=== PATIENT | female | born 1990 | race Caucasian/White ===

== ENCOUNTER → 2022-06-14 20:18 | Observation (INO) ==
[~2022-06-14 20:18] MED LIST: Morphine Sulfate 2 MG/ML SYRINGE IVP ONE; Morphine Sulfate 2 MG/ML SYRINGE SQ PRN
== END | disposition home or self-care (01) ==
LOC: 1NENULAB
PROVIDERS: ADMIT Registered Nurse; ATTEND Registered Nurse

== ENCOUNTER → 2022-06-22 23:02 | Observation (INO) ==
[2022-06-22 20:30] LABS: Bilirubin,Urine Negative (Negative); Blood,Urine Trace (Negative); Clarity,Urine Clear (Clear); Color,Urine Light-Yellow (Yellow); Glucose,Urine (UA) Normal (Normal); Ketones,Urine Trace mg/dL (Negative); Leukocyte Esterase,Urine Negative (Negative); Nitrite,Urine Negative (Negative); PH,Urine 6.5 pH Units (5.0-8.0); Protein,Urine 30 mg/dL (Neg-Trace); Urobilinogen,Urine Normal (Normal)
[2022-06-22 20:31] LABS: Mucus,Urine Few per lpf (None-Few); Squamous Epithelial Cell,Urine Moderate per hpf (None-Few); WBC,Urine 0-3 per hpf (0-3)
[2022-06-22 22:45] LABS: Candida DNA Not Detected (Not Detect); Gardnerella DNA Not Detected (Not Detect); Trichomonas DNA Not Detected (Not Detect)
[~2022-06-22 23:02] MED LIST changes: -Morphine Sulfate 2 MG/ML SYRINGE IVP ONE; -Morphine Sulfate 2 MG/ML SYRINGE SQ PRN; +Ringers Solution, Lactated 1,000 ML IVC ONE
== END | disposition home or self-care (01) ==
LOC: 1NENULAB
PROVIDERS: ADMIT Registered Nurse; ATTEND Registered Nurse

== ENCOUNTER 2022-06-24 06:08 | Inpatient (IN) ==
[~2022-06-24 06:08] MED LIST changes: +*HR* Nalbuphine 10 MG/ML AMPUL IV PRN; +Azithromycin 500 MG in 0.9 % Sodium Chloride 250 ML IVPB PRN; +EPHEDrine sulfate 50 MG/10 ML VIAL IVP PRN; +Epidural Premix (fent/bupiv) 110 ML EP SCH; +Famotidine 20 MG/2 ML VIAL IVP PRN; +Metoclopramide 10 MG/2 ML VIAL IVP PRN; +Naloxone 0.4 MG/ML INJ IVP PRN; +Ondansetron 4 MG/2 ML VIAL IVP PRN; -Ringers Solution, Lactated 1,000 ML IVC ONE
[2022-06-24] MEDS ORDERED: Oxytocin 30 UNIT/503 ML BAG IVC SCH ×2 (06:15→16:23)
[2022-06-24] MEDS ORDERED: Ringers Solution, Lactated 1,000 ML IVC SCH (06:15)
[2022-06-24 06:39] LABS: Basophils % 0.1 %; Eosinophils # 0.3 K/mcL (0.0-0.6); Eosinophils % 1.3 %; Hematocrit 31.5 % (35.3-44.9); Hemoglobin 9.9 g/dL (11.5-15.4); Immature Granulocytes % 0.7 % (0-4); Lymphocytes # 1.6 K/mcL (0.6-4.6); Lymphocytes % 7.8 %; Mean Corpuscular HGB Conc 31.4 g/dL (31.6-35.5); Mean Corpuscular Hemoglobin 24.4 pg (28.0-33.3); Mean Corpuscular Volume 77.8 fL (83.0-100.0); Mean Platelet Volume 9.7 fL (9.4-12.4); Monocytes # 1.4 K/mcL (0.0-1.3); Monocytes % 6.6 %; Neutrophils # 17.2 K/mcL (1.6-8.9); Platelet Count 276 K/mcL (140-400); Red Blood Count 4.05 M/mcL (3.82-4.97); Segmented Neutrophils % 83.5 %; White Blood Count 20.6 K/mcL (4.3-11.1)
[2022-06-24] MEDS ORDERED: Lanolin 7 G OINT...G. TP PRN (16:23)
[2022-06-24] MEDS ORDERED: Ondansetron ODT 4 MG TAB.RAPDIS SL PRN (16:23)
[2022-06-24] MEDS ORDERED: Benzocaine/Menthol 56 GM AEROSOL SPRAY TP PRN (16:23)
[2022-06-24] MEDS ORDERED: OXYTOCIN/RINGERS LACTATE 10 UNIT/166.6 ML BAG IVC ONE (16:23)
[2022-06-24] MEDS: Acetaminophen 325 MG TABLET PO SCH (17:28)
[2022-06-24] MEDS: Ibuprofen 600 MG TABLET PO SCH (17:29)
[2022-06-24] MEDS ORDERED: Ibuprofen 600 MG TABLET PO SCH (20:00)
[2022-06-25] MEDS: Acetaminophen 325 MG TABLET PO SCH ×2 (00:29→08:55)
[2022-06-25] MEDS: Ibuprofen 600 MG TABLET PO SCH ×2 (00:30→08:54)
[2022-06-25 04:45] LABS: Mean Platelet Volume 9.8 fL (9.4-12.4)
[2022-06-25 04:54] LABS: Hematocrit 25.3 % (35.3-44.9); Mean Corpuscular HGB Conc 31.6 g/dL (31.6-35.5); Mean Corpuscular Hemoglobin 24.8 pg (28.0-33.3); Mean Corpuscular Volume 78.6 fL (83.0-100.0); Platelet Count 250 K/mcL (140-400); Red Blood Count 3.22 M/mcL (3.82-4.97); Red Cell Distribution Width 14.4 % (11.5-14.5); White Blood Count 26.5 K/mcL (4.3-11.1)
[2022-06-25 05:03] LABS: Platelet Estimate Normal (Normal)
[2022-06-25 05:27] LABS: Neutrophils # 21.6 K/mcL (1.6-8.9); Segmented Neutrophils % 81.5 %
[2022-06-25 05:28] LABS: Basophils % 0.1 %; Eosinophils # 0.2 K/mcL (0.0-0.6); Eosinophils % 0.9 %; Immature Granulocytes % 0.9 % (0-4); Lymphocytes % 7.6 %; Monocytes # 2.4 K/mcL (0.0-1.3)
[2022-06-25 07:33] VITALS: TEMP 98.1
[2022-06-25] MEDS ORDERED: Prenatal Vit/FA 1 EACH TABLET PO SCH (09:00)
[2022-06-25 11:48] VITALS: BP 113/83; PULSE 95; O2SAT 98
== END 2022-06-25 16:22 | disposition home or self-care (01) | DRG 807 ==
LOC: 1NENULAB → 1NENUOBS 16:22
PROVIDERS: ADMIT Obstetrics & Gynecology; ATTEND Obstetrics & Gynecology